=== PATIENT | female | born 2000 | race Caucasian/White ===

== ENCOUNTER 2018-02-20 11:59 | Emergency (ER) | payer SELFPAY ==
[~2018-02-20] VITALS: Ht 162.6 cm; Wt 56.7 kg
[~2018-02-20 11:59] MED LIST: ACET325UDC; ACET80; ALB; ALBU90OI; ALBU90OI INH; AMOCLA400S PO; AMOX500 PO; AMOX50SU PO; CEPH250SUA PO; CETI10 PO; CODACEE120 PO; CODGUAEL PO; CRUTCH4 USE; Cyclobenzaprine5 MG PO; DIPH25; FLOURIDE; HYDACE7.5L PO; IBUP400 PO; LIDO2L PO; MELO7.5 PO; NAPR500 PO; PHENA100 PO; PROCODE120 PO; RXCEPH250S PO; RXCODGUASY PO; SULTRIEL PO; TRIA80TC TOP; [UNRECOGNIZED DRUG - CODE] PO; [UNRECOGNIZED DRUG - REMARK]
[2018-02-20] MEDS ORDERED: ALBU90OI INH (14:02)
[2018-02-20] MEDS ORDERED: Guaifenesin Wit10 ML PO (14:02)
[2018-02-20] MEDS ORDERED: SPACE CHAMBER1 EACH INH (14:02)
== END 2018-02-20 14:09 | disposition home or self-care (01) ==
LOC: ER 11:59
DX: R05 Cough (principal); Z88.8 Allergy status to other drugs, medicaments and biological substances; Z79.899 Other long term (current) drug therapy
CPT/HCPCS: 71046; 99283

== ENCOUNTER 2018-02-26 09:16 | Emergency (ER) | payer SELFPAY ==
[~2018-02-26] VITALS: Ht 162.6 cm; Wt 58.5 kg
[~2018-02-26 09:16] MED LIST changes: +Guaifenesin Wit10 ML PO; +SPACE CHAMBER1 EACH INH
[2018-02-26] MEDS ORDERED: Sulfamethoxazo1 EAC4 PO (09:57)
[2018-02-26] MEDS ORDERED: MUPI1NAS TOP (10:30)
== END 2018-02-26 10:50 | disposition home or self-care (01) ==
LOC: ER 09:16
DX: L02.415 Cutaneous abscess of right lower limb (principal); L03.115 Cellulitis of right lower limb; B95.62 Methicillin resistant Staphylococcus aureus infection as the cause of diseases classified elsewhere; Z88.5 Allergy status to narcotic agent; Z79.899 Other long term (current) drug therapy
CPT/HCPCS: 10061; 99283

== ENCOUNTER 2019-01-27 09:36 | Emergency (ER) | payer SELFPAY ==
[~2019-01-27] VITALS: Ht 160 cm; Wt 61.2 kg
[~2019-01-27 09:36] MED LIST changes: +MUPI1NAS TOP; +Sulfamethoxazo1 EAC4 PO
[2019-01-27] MEDS ORDERED: Mucinex D 1,201 EACH PO (11:18)
== END 2019-01-27 11:23 | disposition home or self-care (01) ==
LOC: ER 09:36
DX: J06.9 Acute upper respiratory infection, unspecified (principal); G43.909 Migraine, unspecified, not intractable, without status migrainosus; Z88.5 Allergy status to narcotic agent

== ENCOUNTER 2019-09-18 18:17 | Emergency (ER) | payer OTHER ==
[~2019-09-18] VITALS: Ht 162.6 cm; Wt 61.2 kg
[~2019-09-18 18:17] MED LIST changes: +Mucinex D 1,201 EACH PO
== END 2019-09-18 21:20 | disposition home or self-care (01) ==
LOC: ER 18:17
DX: G43.909 Migraine, unspecified, not intractable, without status migrainosus (principal); Z88.5 Allergy status to narcotic agent
CPT/HCPCS: 36415; 96361; 96374; 96375; 99283-25; J0780; J1100; J1200; J1885; J7030

== ENCOUNTER → 2020-02-15 | Outpatient (CLI) | payer OTHER ==
[~2020-02-15] MED LIST changes: +LITHIUM; +PHENERGAN; +QUET25
== END | disposition home or self-care (01) ==
LOC: LAB SHORT 18:39 → LAB 18:39 → LAB FUT 02-14 17:50 → EDSTATUS 02-14 17:50
DX: R30.9 Painful micturition, unspecified (principal)
CPT/HCPCS: 87077; 87086; 87186

== ENCOUNTER 2020-02-26 08:48 | Day surgery (SDC) | payer OTHER ==
[~2020-02-26 08:48] MED LIST changes: -QUET25; +QUET25 PO
[2020-02-26] MEDS ORDERED: CYCL10 PO (10:07)
--- NOTE | 2020-02-26 10:30 | NUR ---
ATTEMPTED POWER-GLIDE X2 ON L ARM. PT VERY ANXIOUS AND SAYING SHE IS VERY AFFRAID OF NEEDLES.
[2020-02-27] MEDS ORDERED: Invanz1 GM IV (09:05)
[2020-02-27] MEDS ORDERED: Cyclobenzaprine5 MG PO (09:08)
[2020-02-27] MEDS ORDERED: DEPO-PROVE150 MG/1 M IM (09:12)
[2020-02-27] MEDS ORDERED: Voltaren100 GM TOP (09:12)
[2020-02-27] MEDS ORDERED: Lithium Carbon600 MG PO (09:14)
[2020-02-27] MEDS ORDERED: DICLO GEL1 EACH TOP (09:14)
[2020-02-27] MEDS ORDERED: Lithium Carbon450 MG PO (09:15)
[2020-02-27] MEDS ORDERED: [UNRECOGNIZED DRUG - OTHER] PO (09:17)
[2020-02-27] MEDS ORDERED: PROM25 PO (09:18)
== END 2020-02-26 11:26 | disposition home or self-care (01) ==
LOC: ATC 08:48
DX: N39.0 Urinary tract infection, site not specified (principal); E11.22 Type 2 diabetes mellitus with diabetic chronic kidney disease; N18.4 Chronic kidney disease, stage 4 (severe); D63.1 Anemia in chronic kidney disease; I50.9 Heart failure, unspecified; A41.9 Sepsis, unspecified organism; J96.01 Acute respiratory failure with hypoxia; J18.9 Pneumonia, unspecified organism; E88.09 Other disorders of plasma-protein metabolism, not elsewhere classified; J44.9 Chronic obstructive pulmonary disease, unspecified; G47.30 Sleep apnea, unspecified; E66.9 Obesity, unspecified; Z99.89 Dependence on other enabling machines and devices; Z79.891 Long term (current) use of opiate analgesic; Z68.27 Body mass index [BMI] 27.0-27.9, adult; F41.8 Other specified anxiety disorders; Z79.899 Other long term (current) drug therapy; Z88.5 Allergy status to narcotic agent; Z88.8 Allergy status to other drugs, medicaments and biological substances
CPT/HCPCS: J1335

== ENCOUNTER 2020-02-28 00:14 | Day surgery (SDC) | payer OTHER ==
[~2020-02-28 00:14] MED LIST changes: +CYCL10 PO; +DEPO-PROVE150 MG/1 M IM; +DICLO GEL1 EACH TOP; +Invanz1 GM IV; +Lithium Carbon450 MG PO; +Lithium Carbon600 MG PO; +PROM25 PO; +Voltaren100 GM TOP; +[UNRECOGNIZED DRUG - OTHER] PO
== END 2020-02-28 11:16 | disposition home or self-care (01) ==
LOC: ATC 00:14
DX: N39.0 Urinary tract infection, site not specified (principal); F31.81 Bipolar II disorder; F41.1 Generalized anxiety disorder; F60.3 Borderline personality disorder; F43.10 Post-traumatic stress disorder, unspecified; Z88.5 Allergy status to narcotic agent; Z88.8 Allergy status to other drugs, medicaments and biological substances; Z79.899 Other long term (current) drug therapy
CPT/HCPCS: 96365; J1335

== ENCOUNTER 2020-03-01 00:24 | Day surgery (SDC) | payer OTHER | END 2020-03-01 11:43 | disposition home or self-care (01) | LOC: ATC 00:24 | DX: N39.0 Urinary tract infection, site not specified (principal); F32.9 Major depressive disorder, single episode, unspecified; Z79.899 Other long term (current) drug therapy | CPT/HCPCS: J1335 ==

== ENCOUNTER 2020-03-02 00:06 | Day surgery (SDC) | payer OTHER ==
--- NOTE | 2020-03-02 10:45 | NUR ---
PT STATES IV IS A LITTLE PAINFULL. ALSO IV HAS SOME REDNESS AT INSERTION SITE. WILL DC AFTER INFUSION TODAY.
== END 2020-03-02 10:39 | disposition home or self-care (01) ==
LOC: ATC 00:06
DX: N39.0 Urinary tract infection, site not specified (principal); F32.9 Major depressive disorder, single episode, unspecified; Z79.899 Other long term (current) drug therapy
CPT/HCPCS: J1335

== ENCOUNTER 2020-03-04 00:06 | Day surgery (SDC) | payer OTHER ==
[2020-03-05] MEDS ORDERED: CELE100 PO (16:38)
== END 2020-03-04 08:25 | disposition home or self-care (01) ==
LOC: ATC 00:06
DX: N39.0 Urinary tract infection, site not specified (principal); Z88.5 Allergy status to narcotic agent; Z88.6 Allergy status to analgesic agent; Z88.8 Allergy status to other drugs, medicaments and biological substances; Z87.891 Personal history of nicotine dependence
CPT/HCPCS: 96365; J1335

== ENCOUNTER 2020-03-05 00:18 | Day surgery (SDC) | payer OTHER ==
--- NOTE | 2020-03-05 16:35 | NUR ---
2X2 GAUZE, PAPER TAPE AND COBAN OVER SITE, PT REPORTS KEEPING IV IN, INSTEAD OF PREVIOUS REQUEST TO HAVE DC'D. LAST DOSE JUAN TOMORROW
[2020-03-05] MEDS ORDERED: CELE100 PO (16:38)
== END 2020-03-05 16:31 | disposition home or self-care (01) ==
LOC: ATC 00:18
DX: N39.0 Urinary tract infection, site not specified (principal); F41.9 Anxiety disorder, unspecified; F32.9 Major depressive disorder, single episode, unspecified; Z79.899 Other long term (current) drug therapy; Z88.6 Allergy status to analgesic agent; Z88.5 Allergy status to narcotic agent; Z88.8 Allergy status to other drugs, medicaments and biological substances
CPT/HCPCS: 96365; J1335

== ENCOUNTER → 2020-03-20 | Outpatient (CLI) | payer OTHER ==
[~2020-03-20] MED LIST changes: +CELE100 PO
== END | disposition home or self-care (01) ==
LOC: LAB 14:30 → LAB SHORT 14:30 → LAB FUT 03-13 14:45
DX: R30.9 Painful micturition, unspecified (principal); Z79.2 Long term (current) use of antibiotics
CPT/HCPCS: 87077; 87086; 87186

== ENCOUNTER 2020-03-31 10:02 | Day surgery (SDC) | payer OTHER ==
[2020-03-31 10:46] LABS: Creatinine, Blood 0.75 mg/dL (0.40-1.00); Gentamicin, Trough <0.2 ug/mL (0.0-1.9)
== END 2020-03-31 11:34 | disposition home or self-care (01) ==
LOC: ATC 10:02
PROVIDERS: Family Medicine
DX: N39.0 Urinary tract infection, site not specified (principal); Z88.8 Allergy status to other drugs, medicaments and biological substances; Z88.5 Allergy status to narcotic agent
CPT/HCPCS: 80170; 82565; 96365; J1580

== ENCOUNTER 2020-04-03 00:08 | Day surgery (SDC) | payer OTHER ==
[2020-04-03 11:13] LABS: Gentamicin, Trough <0.2 ug/mL (0.0-1.9); Glomerular Filtration Rate >60 (60-)
== END 2020-04-03 11:25 | disposition home or self-care (01) ==
LOC: ATC 00:08
PROVIDERS: Family Medicine
DX: N39.0 Urinary tract infection, site not specified (principal); F32.9 Major depressive disorder, single episode, unspecified; F41.1 Generalized anxiety disorder; Z88.5 Allergy status to narcotic agent; Z88.8 Allergy status to other drugs, medicaments and biological substances; Z79.899 Other long term (current) drug therapy
CPT/HCPCS: 80170; 82565; 96365; J1580

== ENCOUNTER 2020-04-04 00:12 | Day surgery (SDC) | payer OTHER ==
[~2020-04-04 00:12] MED LIST changes: -[UNRECOGNIZED DRUG - OTHER] IV
== END 2020-04-04 11:00 | disposition home or self-care (01) ==
LOC: ATC 00:12
DX: N39.0 Urinary tract infection, site not specified (principal); B96.20 Unspecified Escherichia coli [E. coli] as the cause of diseases classified elsewhere; Z88.8 Allergy status to other drugs, medicaments and biological substances; Z88.5 Allergy status to narcotic agent; Z88.6 Allergy status to analgesic agent
CPT/HCPCS: 96365; J1580

== ENCOUNTER → 2020-04-04 | Outpatient (CLI) | payer OTHER ==
[~2020-04-04] MED LIST changes: +[UNRECOGNIZED DRUG - OTHER] IV
== END | disposition home or self-care (01) ==
LOC: LAB SHORT 16:27 → LAB 16:27
DX: N39.0 Urinary tract infection, site not specified (principal)
CPT/HCPCS: 87077; 87086; 87186

== ENCOUNTER 2020-04-05 00:48 | Day surgery (SDC) | payer OTHER ==
[2020-04-06] MEDS ORDERED: [UNRECOGNIZED DRUG - OTHER] IV (10:26)
== END 2020-04-05 11:02 | disposition home or self-care (01) ==
LOC: ATC 00:48
DX: N39.0 Urinary tract infection, site not specified (principal); B96.29 Other Escherichia coli [E. coli] as the cause of diseases classified elsewhere; Z88.8 Allergy status to other drugs, medicaments and biological substances; Z88.5 Allergy status to narcotic agent; Z79.899 Other long term (current) drug therapy; F41.9 Anxiety disorder, unspecified; F32.9 Major depressive disorder, single episode, unspecified
CPT/HCPCS: 96365; J1580

== ENCOUNTER 2020-04-06 00:41 | Day surgery (SDC) | payer OTHER ==
[2020-04-06] MEDS ORDERED: [UNRECOGNIZED DRUG - OTHER] IV (10:26)
[2020-04-06 11:18] LABS: Creatinine, Blood 0.72 mg/dL (0.40-1.00); Gentamicin, Trough <0.2 ug/mL (0.0-1.9)
--- NOTE | 2020-04-06 11:22 | NUR ---
PT STATES THAT SHE FEELS AWFUL AFTER GETTING IV INFUSION OF GENTAMYACIN. STATES SHE FEELS SWEATY AND NAUSEOUS.
== END 2020-04-06 12:06 | disposition home or self-care (01) ==
LOC: ATC 00:41
PROVIDERS: Family Medicine
DX: N39.0 Urinary tract infection, site not specified (principal); B96.29 Other Escherichia coli [E. coli] as the cause of diseases classified elsewhere; Z88.5 Allergy status to narcotic agent; Z88.8 Allergy status to other drugs, medicaments and biological substances
CPT/HCPCS: 80170; 82565; 96365; J1580

== ENCOUNTER 2020-04-11 08:31 | Day surgery (SDC) | payer OTHER ==
[~2020-04-11 08:31] MED LIST changes: +[UNRECOGNIZED DRUG - OTHER] IV
== END 2020-04-11 08:45 | disposition home or self-care (01) ==
LOC: ATC 08:31
DX: N39.0 Urinary tract infection, site not specified (principal)
CPT/HCPCS: 99211

== ENCOUNTER 2020-07-09 06:45 | Day surgery (SDC) | payer OTHER ==
[~2020-07-09] VITALS: Ht 162.6 cm; Wt 78.0 kg
[~2020-07-09 06:45] MED LIST changes: +ACET500 PO; +IBUP600 PO
[2020-07-09] MEDS ORDERED: LAMO25 PO (07:27)
--- NOTE | 2020-07-09 07:44 | NUR ---
Ambulatory in Day Surgery.M Surgical site prepped with 2% Chlorhexidine cloth wipe. History, Chart, Medications and Allergies reviewed before start of procedure. Lungs clear T/O to Auscultation. Patient confirms NPO status and agrees with scheduled surgery. Pre-Op teaching done. Pt verbalizes understanding. Patient States Post-Procedure ride home has been arranged. Patient reports completing Chlorhexadine shower X2 prior to admission to hospital.
--- NOTE | 2020-07-09 11:08 | NUR ---
Patient up to Ambulate independently. Gait steady. Discharge instructions reviewed with patient. Patient verbalizes understanding. Copy given to patient to take home. Discharged via wheelchair to private car for ride home WITH MOTHER.
== END 2020-07-09 22:37 | disposition home or self-care (01) ==
LOC: ORSCMMR 06:45 → ORD 08:15 → ORSCMMR 08:15 → ORD 11:00 → ORSCMMR 22:37
PROVIDERS: Orthopaedic Surgery
PROC: 0PST34Z Reposition Right Finger Phalanx with Internal Fixation Device, Percutaneous Approach (ICD-10-PCS; principal; 2020-07-09 08:15)
DX: S62.614A Displaced fracture of proximal phalanx of right ring finger, initial encounter for closed fracture (principal); F31.9 Bipolar disorder, unspecified; Z79.899 Other long term (current) drug therapy
CPT/HCPCS: C1713; C1769; J0690; J1100; J1885; J2250; J2405; J2704; J3010; J7120

== ENCOUNTER → 2022-07-01 | Outpatient (CLI) | payer OTHER ==
[~2022-07-01] MED LIST changes: +AZIT250 PO; +LAMO25 PO
== END | disposition home or self-care (01) ==
LOC: LAB SHORT 10:53 → LAB 10:53
DX: J02.9 Acute pharyngitis, unspecified (principal)
CPT/HCPCS: 87081

== ENCOUNTER → 2022-07-01 | Outpatient (CLI) | payer OTHER | END | disposition home or self-care (01) | LOC: LAB SHORT 10:50 → LAB 10:50 | DX: N12 Tubulo-interstitial nephritis, not specified as acute or chronic (principal) | CPT/HCPCS: 87077; 87086; 87186 ==

== ENCOUNTER → 2022-10-22 | Outpatient (CLI) | payer OTHER | END | disposition home or self-care (01) | LOC: LAB SHORT 18:17 | DX: R31.29 Other microscopic hematuria (principal) | CPT/HCPCS: 87086 ==

== ENCOUNTER 2023-01-25 21:14 | Emergency (ER) | payer OTHER ==
[~2023-01-25] VITALS: Ht 162.6 cm; Wt 61.2 kg
[2023-01-25 23:34] LABS: Adenovirus Not Detected (NOT DETECT); Coronavirus 229E Not Detected (NOT DETECT); Coronavirus HKU1 Not Detected (NOT DETECT); Coronavirus NL63 Not Detected (NOT DETECT)
[2023-01-25 23:35] LABS: Bordetella pertussis Not Detected (NOT DETECT); Chlamydophila pneumoniae Not Detected (NOT DETECT); Coronavirus OC43 Not Detected (NOT DETECT); Human Metapneumovirus Not Detected (NOT DETECT); Human Rhinovirus/Enterovirus Detected (NOT DETECT); Influenza A/2009-H1 Not Detected (NOT DETECT); Influenza A/H1 Not Detected (NOT DETECT); Influenza A/H3 Not Detected (NOT DETECT); Influenza B Not Detected (NOT DETECT); Mycoplasma pneumoniae Not Detected (NOT DETECT); Parainfluenza Virus 1 Not Detected (NOT DETECT); Parainfluenza Virus 2 Not Detected (NOT DETECT); Parainfluenza Virus 3 Not Detected (NOT DETECT); Parainfluenza Virus 4 Not Detected (NOT DETECT); Respiratory Syncytial Virus Not Detected (NOT DETECT); SARS-Cov-2 (COVID-19), BioFire Not Detected (NOT DETECT)
== END 2023-01-25 22:22 | disposition left against medical advice (07) ==
LOC: ER 21:14
PROVIDERS: Student in an Organized Health Care Education/Training Program
DX: R05.9 Cough, unspecified (principal); Z53.21 Procedure and treatment not carried out due to patient leaving prior to being seen by health care provider
CPT/HCPCS: 0202U

== ENCOUNTER 2023-01-30 02:10 | Emergency (ER) | payer OTHER ==
[~2023-01-30] VITALS: Ht 162.6 cm; Wt 61.0 kg
[2023-01-30] MEDS ORDERED: Flonase 0.05% N16 GM (03:12)
[2023-01-30] MEDS ORDERED: BENZ100A PO (03:12)
== END 2023-01-30 03:19 | disposition home or self-care (01) ==
LOC: ER 02:10
DX: O99.512 Diseases of the respiratory system complicating pregnancy, second trimester (principal); J20.9 Acute bronchitis, unspecified; R09.82 Postnasal drip; O99.332 Smoking (tobacco) complicating pregnancy, second trimester; F17.210 Nicotine dependence, cigarettes, uncomplicated; Z3A.27 27 weeks gestation of pregnancy; Z88.5 Allergy status to narcotic agent; Z88.8 Allergy status to other drugs, medicaments and biological substances; Z79.899 Other long term (current) drug therapy
CPT/HCPCS: A9270

== ENCOUNTER → 2023-07-16 | Outpatient (CLI) | payer OTHER ==
[~2023-07-16] MED LIST changes: +BENZ100A PO; +Flonase 0.05% N16 GM
[2023-07-16 17:19] LABS: BASOPHILS ABSOLUTE AUTO 0.06 K/mm3 (0.00-0.23); BASOPHILS PERCENT AUTO 1 % (0-2); EOSINOPHILS PERCENT AUTO 2 % (0-6); Hematocrit 41.1 % (33.0-51.0); Hemoglobin 13.8 g/dL (11.5-16.0); IMMATURE GRAN ABSOLUTE AUTO 0.06 K/mm3 (0.00-0.10); IMMATURE GRAN PERCENT AUTO 1 % (0-1); LYMPHOCYTES ABSOLUTE AUTO 2.15 K/mm3 (0.84-5.20); LYMPHOCYTES PERCENT AUTO 24 % (21-46); MONOCYTES ABSOLUTE AUTO 0.74 K/mm3 (0.16-1.47); MONOCYTES PERCENT AUTO 8 % (4-13); Mean Corpuscular HGB 30.2 pg (26.0-34.0); Mean Corpuscular HGB Conc 33.6 g/dL (31.5-36.5); Mean Corpuscular Volume 90 fL (80-100); Mean Platelet Volume 9.8 fL (9.1-12.4); NEUTROPHILS ABSOLUTE AUTO 5.67 K/mm3 (1.96-9.15); NEUTROPHILS PERCENT AUTO 64 % (41-73); Platelet Count 349 K/mm3 (150-400); RDW Coefficient Variation 14.6 % (11.7-14.2); Red Blood Cell Count 4.57 M/mm3 (3.80-5.20); White Blood Cell Count 8.88 K/mm3 (4.00-11.30)
[2023-07-16 19:26] LABS: Albumin, Blood 3.9 g/dL (3.4-5.0); Albumin/Globulin Ratio 1.1 (0.8-1.8); Bilirubin, Total 0.2 mg/dL (0.1-1.0); Bun/Creatinine Ratio 14.1 (12.0-20.0); Calcium, Blood 9.9 mg/dL (8.5-10.1); Creatinine, Blood 0.64 mg/dL (0.40-1.00); Globulin, Blood 3.7 g/dL (2.2-4.0); Potassium, Blood 4.2 mmol/L (3.5-5.5); Thyroid Stimulating Hormone 2.12 uIU/mL (0.360-4.800); Total Protein, Blood 7.6 g/dL (6.4-8.2)
== END | disposition home or self-care (01) ==
LOC: LAB SHORT 12:53 → LAB 12:53
PROVIDERS: Family Medicine
DX: N39.0 Urinary tract infection, site not specified (principal); R63.4 Abnormal weight loss
CPT/HCPCS: 80053; 84443; 85025; 87077; 87086; 87186

== ENCOUNTER → 2025-02-05 | Outpatient (CLI) | payer OTHER ==
[2025-02-05 12:49] LABS: Source, Urine Clean Catch
[2025-02-05 16:06] LABS: Bacteria Mod /hpf; Squamous Epithelial Cells Few /hpf (Few); White Blood Cells, Urine 0-2 /hpf (0-5)
[2025-02-05 16:21] LABS: U Amphetamine Screen Not Detected; U Barbituate Screen Not Detected; U Benzodiazapine Screen Not Detected; U Buprenorphine Screen Not Detected; U Cannabinoids Screen DETECTED; U Cocaine Screen Not Detected; U Methadone Screen Not Detected; U Methamphetamine Screen Not Detected; U Opiates Screen Not Detected; U Oxycodone Screen Not Detected; U Phencyclidine Screen Not Detected
[2025-02-09 07:38] LABS: 11-NOR-9-CARBOXY-THC,URN,QUANT >500 ng/mL
== END | disposition home or self-care (01) ==
LOC: LAB 12:46 → LAB SHORT 12:46
PROVIDERS: Advanced Practice Midwife
DX: Z34.81 Encounter for supervision of other normal pregnancy, first trimester (principal)
CPT/HCPCS: 81015; 87086; G0480

== ENCOUNTER 2025-02-09 22:55 | Emergency (ER) | payer OTHER ==
[~2025-02-09] VITALS: Ht 162.6 cm; Wt 62.1 kg
[2025-02-09 23:33] VITALS: BP 123/72
[2025-02-10 00:06] LABS: BASOPHILS ABSOLUTE AUTO 0.07 K/mm3 (0.00-0.23); BASOPHILS PERCENT AUTO 1 % (0-2); EOSINOPHILS ABSOLUTE AUTO 0.18 K/mm3 (0.00-0.68); EOSINOPHILS PERCENT AUTO 1 % (0-6); Hematocrit 40.4 % (33.0-51.0); Hemoglobin 13.9 g/dL (11.5-16.0); IMMATURE GRAN ABSOLUTE AUTO 0.17 K/mm3 (0.00-0.10); IMMATURE GRAN PERCENT AUTO 1 % (0-1); LYMPHOCYTES ABSOLUTE AUTO 2.75 K/mm3 (0.84-5.20); LYMPHOCYTES PERCENT AUTO 18 % (21-46); MONOCYTES ABSOLUTE AUTO 1.05 K/mm3 (0.16-1.47); MONOCYTES PERCENT AUTO 7 % (4-13); Mean Corpuscular HGB Conc 34.4 g/dL (31.5-36.5); Mean Corpuscular Volume 90 fL (80-100); Mean Platelet Volume 8.7 fL (9.1-12.4); NEUTROPHILS ABSOLUTE AUTO 10.74 K/mm3 (1.96-9.15); NEUTROPHILS PERCENT AUTO 72 % (41-73); Platelet Count 291 K/mm3 (150-400); RDW Coefficient Variation 14.6 % (11.7-14.2); RDW Standard Deviation 48.2 fL (35.1-46.3); Red Blood Cell Count 4.48 M/mm3 (3.80-5.20); White Blood Cell Count 14.96 K/mm3 (4.00-11.30)
[2025-02-10 01:04] LABS: Albumin, Blood 3.8 g/dL (3.4-5.0); Albumin/Globulin Ratio 1.2 (0.8-1.8); Bilirubin, Total 0.5 mg/dL (0.1-1.0); Bun/Creatinine Ratio 14.4 (12.0-20.0); Calcium, Blood 8.5 mg/dL (8.5-10.1); Creatinine, Blood 0.7 mg/dL (0.40-1.00); Globulin, Blood 3.2 g/dL (2.2-4.0); Potassium, Blood 3.1 mmol/L (3.5-5.5)
== END 2025-02-10 02:12 | disposition home or self-care (01) ==
LOC: ER 22:55
PROVIDERS: Student in an Organized Health Care Education/Training Program
DX: O20.0 Threatened abortion (principal); Z3A.08 8 weeks gestation of pregnancy; Z88.5 Allergy status to narcotic agent; Z88.8 Allergy status to other drugs, medicaments and biological substances
CPT/HCPCS: 76801; 80053; 85025; 86850; 86900; 86901; 99284-25

== ENCOUNTER → 2025-07-16 | Outpatient (CLI) | payer OTHER ==
[2025-07-16 15:01] LABS: Source, Urine Voided
[2025-07-16 16:29] LABS: Bilirubin, Urine Neg (Neg); Glucose Qualitative, Urine Neg (Neg); Ketones, Urine Neg (Neg); Leukocyte Esterase, Urine 1+ (Neg); Protein, Urine 1+ (Neg); Specific Gravity, Urine 1.005 (1.003-1.022); Urobilinogen, Urine NORM (Normal)
[2025-07-16 16:55] LABS: Color, Urine Pale Yellow (P-Yellow)
[2025-07-16 16:56] LABS: White Blood Cells, Urine 0-2 /hpf (0-5)
== END ==
LOC: LAB 10:52 → LAB SHORT 10:52
PROVIDERS: Family Medicine
DX: O09.93 Supervision of high risk pregnancy, unspecified, third trimester (principal); Z3A.00 Weeks of gestation of pregnancy not specified
CPT/HCPCS: 81001; 87077; 87086; 87186